=== PATIENT | male | born 2000 | race Caucasian/White ===

== ENCOUNTER 2023-02-20 20:37 | Emergency (ER) | payer SELFPAY ==
[~2023-02-20] VITALS: Ht 175.3 cm; Wt 83.9 kg
[2023-02-20 21:36] VITALS: BP 141/78; PULSE 72; RESP 16; TEMP 97.4; O2SAT 100
== END 2023-02-21 00:45 | disposition left against medical advice (07) ==
LOC: MED 20:37
DX: M79.641 Pain in right hand (principal); Z53.21 Procedure and treatment not carried out due to patient leaving prior to being seen by health care provider
CPT/HCPCS: 73130; 99281